=== PATIENT | female | born 2000 | race Caucasian/White ===

== ENCOUNTER 2022-08-23 17:47 | Observation (INO) | payer SELFPAY ==
[2022-08-23] VITALS (10 sets, daily range): BP systolic 104–125; BP diastolic 68–77; PULSE 57–81; RESP 16–24; TEMP 36.9; O2SAT 100
--- NOTE | ~2022-08-23 | CT_ITS ---
EXAMINATION: CT abdomen pelvis w con DATE: 08/23/2022 20:55 INDICATION: RLQ pain TECHNIQUE: Computed tomography (CT) of the abdomen and pelvis was performed with 100 mL Omnipaque-350 intravenous contrast. Automated exposure control and iterative reconstruction technique were employe d. The dose-length product was 314.58 mGy-cm. COMPARISON: None. FINDINGS: Lower thorax: Unremarkable Liver: Normal. Biliary/Gallbladder: Gallbladder is normal. No bile duct dilation. Pancreas: No mass or duct dilation. Spleen: Normal. Adrenals:No mass. Kidneys: No mass, stone, or hydronephrosis. GI tract: No small or large bowel dilation. Appendicoliths are present in mildly dilated, mostly flui d-filled appendix, with wall hyperemia. No wall breakdown. Mesentery/Peritoneum: No ascites, mass, or free air. Retroperitoneum: No mass. Pelvis: Pelvic organs are within normal limits. Soft Tissues: Soft tissues and body wall unremarkable. Bones: No acute osseous finding. IMPRESSION: Acute uncomplicated appendicitis. Reviewed, dictated and finalized at location K. RT PRE COOKER
[2022-08-23 18:03] LABS: Basophils Percent Auto 0.2 % (0.2-1.2); Eosinophils Absolute Auto 0.1 K/mm3 (0-0.3); Eosinophils Percent Auto 0.7 % (0-4.4); Hematocrit 40.1 % (37.0-47.0); Hemoglobin 13.1 g/dL (12.0-15.0); Immature Granulocyte Absolute 0.03 K/mm3 (0.00-0.031); Immature Granulocyte Percent A 0.3 % (0-0.5); Lymphocytes Percent Auto 19.5 % (18.3-44.2); Mean Corpuscular HGB Conc 32.7 g/dl (32-36); Mean Corpuscular Volume 94.8 fl (80-100); Monocytes Absolute Auto 0.8 K/mm3 (0.1-0.6); Monocytes Percent Auto 8.5 % (2.6-8.5); Neutrophils Absolute Auto 6.9 K/mm3 (1.3-6.7); Neutrophils Percent Auto 70.8 % (45.5-73.1); Platelet Count Result 287 k/mm3 (150-375); Red Blood Count 4.23 M/mm3 (4.2-5.4); Red Cell Distribution Width 12.4 % (11.5-14.5); White Blood Count 9.8 K/mm3 (4.5-10.0)
[2022-08-23 18:13] LABS: Add Urine Microscopic? NO; Appearance Urine Clear (Clear); Bilirubin Urine Negative (Negative); Blood Urine Negative (Negative); Color Urine Yellow (Yellow); Glucose Urine UA Negative (Negative); Ketones Urine Negative (Negative); Leukocyte Esterase Ur Negative LEU/UL (Negative); Nitrate Urine Negative (Negative); Protein Urine Negative (Negative); Urobilinogen Urine 0.2 mg/dL (<2.0); pH Urine 8.5 (5.0-9.0)
[2022-08-23 18:23] LABS: Alanine Aminotransferase 17 U/L (6-35); Albumin Level 4.3 g/dL (3.5-5.1); Alkaline Phosphatase 59 U/L (38-126); Anion Gap 6 mmol/L (8-16); Aspartate Amino Transferase 23 U/L (14-36); Blood Urea Nitrogen 10 mg/dL (7-17); Calcium 9.1 mg/dL (8.4-10.2); Carbon Dioxide 28 mmol/L (22-30); Chloride 104 mmol/L (98-107); Estimated CRCL calculation 95 ml/min; Estimated Glomerular Filt Rate > 60; Glucose 100 mg/dL (65-110); Lipase 44 U/L (23-300); Sodium 138 mmol/L (137-145)
--- NOTE | 2022-08-23 18:58 | ED.ABDPAIN ---
HPI - Abdominal Pain General Chief Complaint: Abdominal Pain Stated Complaint: abd pain Time Seen by Provider: 08/23/22 18:24 History of Present Illness HPI narrative: 22-year-old female nontoxic appearing with no medical problems, patient presents to the emergency room for evaluation of right lower quadrant pain that began last night. Denies any nausea vomiting or diarrhea. Patient states that she does suffer from constipation and takes magnesium and an additional stool softener on a regular basis. Denies back pain. Denies fevers. States pain is worse with ambulation. Describes the pain as a sharp stabbing pain. Review of Systems Review of Systems: CONSTITUTIONAL: Denies fever, chills, or sweats. EYES: Denies visual changes, redness, or discharge. ENT: Denies rhinorrhea, congestion, sore throat, or otalgia. CARDIOVASCULAR: Denies chest pain, palpitations, or edema. RESPIRATORY: Denies cough or dyspnea. GASTROINTESTINAL: Reports abdominal pain, nausea, constipation GENITOURINARY: Denies dysuria or hematuria. SKIN: Denies rash or itching. MUSCULOSKELETAL: Denies back pain, joint pain, or myalgia. NEUROLOGIC: Denies headache, numbness, dizziness, or weakness. PSYCHIATRIC: Denies anxiety or depression. Exam Narrative: GENERAL: Well-appearing, well-nourished, no physical limitations, and in no acute distress. HEAD: Normocephalic, atraumatic. EYES: Conjunctivae normal, PERRLA and EOMI. CHEST: Clear to auscultation. No respiratory distress. No wheezes rales or rhonchi. HEART: Regular rate and rhythm. No murmur heard. Normal peripheral pulses. ABDOMEN: Soft, right lower quadrant tenderness, nondistended, normal active bowel sounds. Negative heel strike. Positive psoas and obturator signs BACK: No CVA tenderness EXTREMITIES: Normal range of motion. No edema. No clubbing or cyanosis SKIN: Warm, dry, no rash. No noted wounds NEURO: No focal deficits. Alert and oriented x3. MAEW. CN's II-XI intact bilaterally, normal gait PSYCH: Cooperative. Normal mood and affect. Course Vital Signs Vital signs: Vital Signs Temperature 36.9 C 08/23/22 17:48 Pulse Rate 81 08/23/22 17:48 Respiratory Rate 18 08/23/22 17:48 Blood Pressure 125/72 08/23/22 17:48 Pulse Oximetry 100 08/23/22 17:48 Oxygen Delivery Room Air 08/23/22 17:48 Temperature 36.9 C 08/23/22 17:48 Pulse Rate 61 08/23/22 21:31 Respiratory Rate 19 08/23/22 21:31 Blood Pressure 113/77 08/23/22 21:31 Pulse Oximetry 100 08/23/22 21:16 Oxygen Delivery Room Air 08/23/22 17:48 MDM - Abdominal Pain Lab Data 08/23/22 17:55 08/23/22 17:55 Labs: Lab Results 08/23/22 08/23/22 08/23/22 Range/Units 17:55 17:55 18:06 WBC 9.8 (4.5-10.0) K/mm3 RBC 4.23 (4.2-5.4) M/mm3 Hgb 13.1 (12.0-15.0) g/dL Hct 40.1 (37.0-47.0) % MCV 94.8 (80-100) fl MCH 31.0 (26-34) pg MCHC 32.7 (32-36) g/dl RDW 12.4 (11.5-14.5) % Plt Count 287 (150-375) k/mm3 MPV 9.0 (7.4-10.4) fl Immature Gran % (Auto) 0.3 (0-0.5) % Neut % (Auto) 70.8 (45.5-73.1) % Lymph % (Auto) 19.5 (18.3-44.2) % [place] % (Auto) 8.5 (2.6-8.5) % Eos % (Auto) 0.7 (0-4.4) % Baso % (Auto) 0.2 (0.2-1.2) % Lymph # (Auto) 1.90 (0.9-3.2) K/mm3 [place] # (Auto) 0.8 H (0.1-0.6) K/mm3 Eos # (Auto) 0.1 (0-0.3) K/mm3 Baso # (Auto) 0.0 (0.0-0.1) K/mm3 Abs Immat Gran (auto) 0.03 (0.00-0.031) K/mm3 Absolute Neuts (auto) 6.9 H (1.3-6.7) K/mm3 Absolute Nucleated RBC 0.0 (0.0-0.012) K/mm3 Nucleated RBC % 0.0 (0.0-0.2) % Sodium 138 (137-145) mmol/L Potassium 4.0 (3.4-5.0) mmol/L Chloride 104 (98-107) mmol/L Carbon Dioxide 28 (22-30) mmol/L Anion Gap 6 L (8-16) mmol/L BUN 10 (7-17) mg/dL Creatinine 0.70 (0.7-1.0) mg/dL Estim Creat Clear Calc 95 ml/min Estimated GFR > 60 (59 - ) Glucose 100 (65-110) mg/dL Calcium 9.1 (8.
--- NOTE | 2022-08-23 19:32 | PC.NURSE ---
1909 Assumed pt care from Lindsey Campuzano RN
[2022-08-23 22:26] LABS: Influenza A QL RT-PCR Negative (Negative); Influenza B QL RT-PCR Negative (Negative); RSV RNA, RT-PCR Negative (Negative); SARS-CoV-2 RNA PCR Negative
[2022-08-23] MEDS: Please add drug allergy info to patient profile. 1 EACH XX (23:37)
[2022-08-23] MEDS: ONDANSETRON INJ 4 MG/2 ML VIAL IV PUSH (23:44)
[2022-08-23] MEDS: HYDROmorphone HCL INJ (*CRX) 1 MG/ML SYR 0.5 MG IV PUSH (23:44)
[2022-08-24] VITALS (14 sets, daily range): BP systolic 100–113; BP diastolic 51–74; PULSE 53–81; RESP 14–22; TEMP 36.6–37.4; O2SAT 96–100; BMI 23.4
[2022-08-24 00:01] LABS: Lactic Acid Reflex 1.7 mmol/L (0.7-2.0)
[2022-08-24] MEDS: HYDROmorphone HCL INJ (*CRX) 1 MG/ML SYR 0.5 MG IV PUSH (08:01)
--- NOTE | 2022-08-24 08:04 | PM.IMHP ---
H&P: HPI History of Present Illness Date/Time: 08/24/22 08:04 Chief Complaint: abd pain Narrative: Patient is a 22-year-old woman with complaints of right lower quadrant abdominal pain that started night before last. Pain is sharp and stabbing. It is worse with ambulation. She has a history of chronic constipation. She came to the emergency room last night. She had right lower quadrant tenderness and a positive psoas sign. CT scan showed acute appendicitis with appendicolith. Patient has been admitted and started on IV antibiotics. Plan to proceed with laparoscopic appendectomy today. Review of Systems Review of Systems: All systems reviewed & are unremarkable except as noted in HPI and below (HPI and those items noted below) Constitutional: Constitutional: Denies chills and Denies fever(s) Cardiovascular: Cardiovascular: Denies chest pain, Denies diaphoresis, Denies dyspnea and Denies paroxysmal nocturnal dyspnea Respiratory: Respiratory: Denies chest congestion, Denies cough and Denies dyspnea Integumentary/Breasts: Skin/Breast: Denies lesions and Denies rash PMFSH Social History Social History Lack of Transportation: No Lack of Food: Never True Current Housing: I Have Housing Concerned About Future Housing: No Difficulty Paying Gas/Electric Bills: No Difficulty Paying for Meds: No Currently Unemployed: No Education: High School Diploma/GED Difficulty w/ Childcare or Family Care: No Spiritual care concerns: No Meds Home Medications and Allergies Home Medications Medication Instructions Recorded Confirmed Type norgestimate-ethinyl estradiol 1 tablet PO DAILY 08/23/22 08/24/22 History 0.18 mg/0.215mg/0.25mg-35 mcg(28)tablet (Tri-Sprintec (28)) Rueda Milk of Magnesia 1,000 mg PO DAILY 08/24/22 08/24/22 History bisacodyl 5 mg tablet,delayed 10 mg PO DAILY 08/24/22 08/24/22 History release (Dulcolax (bisacodyl)) Allergies Allergy/AdvReac Type Severity Reaction Status Date / Time No Known Allergies Allergy Verified 08/23/22 22:46 Vital Signs Vital Signs - 24 hr 08/23/22 17:48 08/23/22 18:46 01/22/23 20:16 Temperature 36.9 C Pulse Rate 81 70 67 Respiratory Rate 18 16 19 Blood Pressure 125/72 112/73 104/71 Pulse Oximetry 100 100 100 Oxygen Delivery Room Air 08/23/22 20:31 08/23/22 20:56 08/23/22 21:01 Temperature Pulse Rate 70 62 69 Respiratory Rate 20 24 H 17 Blood Pressure 109/76 114/75 114/70 Pulse Oximetry 100 100 100 Oxygen Delivery 08/23/22 21:16 08/23/22 21:31 08/23/22 21:46 Temperature Pulse Rate 57 L 61 63 Respiratory Rate 17 19 16 Blood Pressure 108/70 113/77 113/74 Pulse Oximetry 100 Oxygen Delivery 08/23/22 23:53 08/24/22 00:01 08/24/22 01:27 Temperature 36.7 C Pulse Rate 73 72 60 Respiratory Rate 16 16 20 Blood Pressure 107/68 106/63 113/65 Pulse Oximetry 100 97 100 Oxygen Delivery 08/24/22 04:00 Temperature 36.6 C Pulse Rate 55 L Respiratory Rate 20 Blood Pressure 107/60 Pulse Oximetry 99 Oxygen Delivery Exam Const: General: comfortable, no acute distress, alert and awake HENMT: Head: normocephalic and atraumatic Mouth: Yes Normal oral and palatal mucosa present Eyes: Conjunctivae: conjunctivae normal Pupils: Equal, round and reactive pupils present EOM: EOMs intact bilaterally Neck: Neck: normal visual inspection, no lymphadenopathy and nontender Resp: Effort & Inspection: normal respiratory effort Auscultation: clear to auscultation bilaterally Cardio: Rate: regular rate Rhythm: regular rhythm Heart sounds: no gallops, no murmurs and no rubs GI: Inspection: non-distended, scaphoid and no scars GI Palp: Yes Soft to palpation, Yes Tenderness to palpation present (GI) (Right lower quadrant with guarding), Yes Guarding due to palpation present (GI), No Hepatomegaly present, No Splenomegaly present and No Palpable mass
--- NOTE | 2022-08-24 12:47 | WPDHPUPDATE1 ---
History and Physical Update Update Date/Time: 08/24/22 12:47 History and Physical has been reviewed, including an updated exam of the patient. There are NO changes in the patient's condition. Risks, benefits, and alternatives have been discussed and questions answered. Patient agrees to proceed with procedure.
[2022-08-24] MEDS: LACTATED RINGERS 1,000 ML 30 ML IV CONT ×2 (13:15→15:20)
[2022-08-24] MEDS: ceFAZolin 2 GM/D5W 50 ML 2 GM/50 ML BAG IVPB (14:24)
--- NOTE | 2022-08-24 14:29 | WPDANESEPPF ---
Anes - Initial Pre Proc Eval Procedure: Operation Date: 08/24/22 14:30 Proposed Procedures p Laparoscopic Appendectomy - Charlie Diaz MD Date/Time: 08/24/22 14:29 Surgeon: Charlie Diaz MD Pre Op Diagnosis: APPENDICITIS Patient Data Age: 22 Gender: F Height: 1.65 m Weight: 63.9 kg Last Vital Signs Temp 36.8 C 08/24/22 13:24 Pulse 64 08/24/22 13:24 Resp 14 08/24/22 13:24 BP 102/61 08/24/22 13:24 Pulse Ox 100 08/24/22 13:24 O2 Del Method Room Air 08/24/22 13:24 Allergies Allergy/AdvReac Type Severity Reaction Status Date / Time No Known Allergies Allergy Verified 08/23/22 22:46 Home Medications Medication Instructions Recorded Confirmed Type norgestimate-ethinyl estradiol 1 tablet PO DAILY 08/23/22 08/24/22 History 0.18 mg/0.215mg/0.25mg-35 mcg(28)tablet (Tri-Sprintec (28)) Rueda Milk of Magnesia 1,000 mg PO DAILY 08/24/22 08/24/22 History bisacodyl 5 mg tablet,delayed 10 mg PO DAILY 08/24/22 08/24/22 History release (Dulcolax (bisacodyl)) Laboratory Tests 08/23/22 08/23/22 08/23/22 17:55 17:55 18:06 WBC 9.8 K/mm3 K/mm3 (4.5-10.0) RBC 4.23 M/mm3 M/mm3 (4.2-5.4) Hgb 13.1 g/dL g/dL (12.0-15.0) Hct 40.1 % % (37.0-47.0) MCV 94.8 fl fl (80-100) MCH 31.0 pg pg (26-34) MCHC 32.7 g/dl g/dl (32-36) RDW 12.4 % % (11.5-14.5) Plt Count 287 k/mm3 k/mm3 (150-375) MPV 9.0 fl fl (7.4-10.4) Immature Gran % (Auto) 0.3 % % (0-0.5) Neut % (Auto) 70.8 % % (45.5-73.1) Lymph % (Auto) 19.5 % % (18.3-44.2) [place] % (Auto) 8.5 % % (2.6-8.5) Eos % (Auto) 0.7 % % (0-4.4) Baso % (Auto) 0.2 % % (0.2-1.2) Lymph # (Auto) 1.90 K/mm3 K/mm3 (0.9-3.2) [place] # (Auto) 0.8 K/mm3 H K/mm3 (0.1-0.6) Eos # (Auto) 0.1 K/mm3 K/mm3 (0-0.3) Baso # (Auto) 0.0 K/mm3 K/mm3 (0.0-0.1) Abs Immat Gran (auto) 0.03 K/mm3 K/mm3 (0.00-0.031) Absolute Neuts (auto) 6.9 K/mm3 H K/mm3 (1.3-6.7) Absolute Nucleated RBC 0.0 K/mm3 K/mm3 (0.0-0.012) Nucleated RBC % 0.0 % % (0.0-0.2) Sodium 138 mmol/L mmol/L (137-145) Potassium 4.0 mmol/L mmol/L (3.4-5.0) Chloride 104 mmol/L mmol/L (98-107) Carbon Dioxide 28 mmol/L mmol/L (22-30) Anion Gap 6 mmol/L L mmol/L (8-16) BUN 10 mg/dL mg/dL (7-17) Creatinine 0.70 mg/dL mg/dL (0.7-1.0) Estim Creat Clear Calc 95 ml/min ml/min Estimated GFR > 60 (59 - ) Glucose 100 mg/dL mg/dL (65-110) Lactic Acid Calcium 9.1 mg/dL mg/dL (8.4-10.2) Total Bilirubin 1.0 mg/dL mg/dL (0.2-1.3) AST 23 U/L U/L (14-36) ALT 17 U/L U/L (6-35) Alkaline Phosphatase 59 U/L U/L (38-126) Total Protein 8.0 g/dL g/dL (6.3-8.2) Albumin 4.3 g/dL g/dL (3.5-5.1) Lipase 44 U/L U/L (23-300) Urine Color Yellow (Yellow) Urine Appearance Clear (Clear) Urine pH 8.5 (5.0-9.0) Ur Specific [place] 1.020 (1.001-1.035) Urine Protein Negative mg/dL mg/dL (Negative) Urine Glucose (UA) Negative mg/dL mg/dL (Negative) Urine Ketones Negative mg/dL mg/dL (Negative) Ur Blood (Man) Negative (Negative) Urine Nitrate Negative (Negative) Urine Bilirubin Negative (Negative) Urine Urobilinogen 0.2 mg/dL mg/dL (<2.0) Leukocyte Esterase Rfl Negative MARIKA/UL MARIKA/UL (Negative) Influenza A (RT-PCR) Influenza B (RT-PCR) RSV (RT-PCR) SARS-CoV-2 RNA (RT-PCR) 08/23/22 08/23/22 21:45 23:34 WBC RBC Hgb Hct
[2022-08-24] MEDS: BUPIVACAINE/EPINEPHRINE 0.5% 30 ML VIAL INFILTRATE (14:49)
--- NOTE | 2022-08-24 15:25 | W.PM.PROC2 ---
Procedure Note - Detailed Date of Procedure 08/24/22 Pre-op Diagnosis APPENDICITIS Post-op Diagnosis Same Procedure Performed Laparoscopic appendectomy Surgeon Charlie Diaz MD Cold Roll Operator Mu GANDHI Anesthesia General and Local (0.5% Marcaine with epinephrine) Indications Patient came to the emergency room last night with right lower quadrant pain that started the night before. She had tenderness in the right lower quadrant and CT scan showed acute appendicitis with appendicoliths. She is taken to surgery now for laparoscopic appendectomy. Findings Acute appendicitis but no evident of ruptured appendix. Description of Procedure Patient was taken to surgery and induced into general anesthesia. The abdomen is prepped and draped. Left-sided trocars were placed using Riiid optical trocars and a 5 mm camera. After adequate insufflation, patient was placed in Trendelenburg with the right-side elevated. There were some inflammatory adhesions to the appendix. These were taken down without difficulty. The appendix was then somewhat twisted upon itself and these inflammatory adhesions were broken up and the appendix was in its more normal configuration. It was obviously inflamed and the inflammation was limited to the distal 2/3 of the appendix. The mesoappendix was dissected and the appendiceal artery was dissected. The appendiceal artery was then thoroughly cauterized and divided. The rest of the mesoappendix was dissected and the base of the appendix was skeletonized. The appendix was then ligated at its base with a Vicryl endoloop. It was amputated just above the ligature and the mucosa of the appendiceal stump was cauterized. The appendix was then placed immediately in an Endo-Catch bag. It was removed through the 10 11 left lower quadrant trocar site. The trocar was then replaced. We reviewed the areas of dissection and the appendiceal stump. All looked quite good. We then evacuated CO2 and removed the trocar sleeves. Skin wounds were closed with subcuticular 4-0 Monocryl skin suture. The wounds were dressed with Exofin surgical adhesive. Patient was awakened and taken to recovery in good condition. Sponge needle counts were correct x2. Estimated Blood Loss -5 Drains No Packing No Pathology Yes (Appendix) Complications No immediate complications Condition Stable Disposition PACU [facility] Billing Surgery - Charge Forward: Surgery Billing (Laparoscopic appendectomy)
--- NOTE | 2022-08-24 15:25 | PM.DS ---
DS: Admitting Diagnosis Discharge Date 08/24/2022 Admitting Diagnosis Acute appendicitis DS: Discharge Diagnosis Discharge Diagnosis (1) Acute appendicitis: Code(s): K35.80 - Unspecified acute appendicitis Status: Acute (2) Chronic constipation: Code(s): K59.09 - Other constipation Status: Chronic DS: Summary Hospital Course Hospital Course: Patient came to the emergency room last night with complaints of right lower quadrant abdominal pain that started the night before. Although her white blood cell count was in the normal range, she had right lower quadrant tenderness with guarding and CT scan showed acute appendicitis with appendicoliths. She was taken to surgery on 08/24/2022 and laparoscopic appendectomy was performed. The appendicitis was primarily in the distal 2/3 of the appendix. There was no evidence of ruptured appendix. Patient did well with the surgery in stable to be discharged later in the evening. Status at Discharge Functional status at discharge: independent ambulation Overall status at discharge: patient is progressing back to baseline Time Spent with Patient Time attestation: Total time spent providing and/or coordinating discharge services: Time spent: Less than 30 minutes DS: Data Data Completed and Pending Labs on day of discharge: Labs from last 24 hours 08/23/22 08/23/22 08/23/22 23:34 21:45 18:06 WBC RBC Hgb Hct MCV MCH MCHC RDW Plt Count MPV Immature Gran % (Auto) Neut % (Auto) Lymph % (Auto) Hand % (Auto) Eos % (Auto) Baso % (Auto) Lymph # (Auto) Hand # (Auto) Eos # (Auto) Baso # (Auto) Abs Immat Gran (auto) Absolute Neuts (auto) Absolute Nucleated RBC Nucleated RBC % Sodium Potassium Chloride Carbon Dioxide Anion Gap BUN Creatinine Estim Creat Clear Calc Estimated GFR Glucose Lactic Acid 1.7 Calcium Total Bilirubin AST ALT Alkaline Phosphatase Total Protein Albumin Lipase Urine Color Yellow Urine Appearance Clear Urine pH 8.5 Ur Specific [place] 1.020 Urine Protein Negative Urine Glucose (UA) Negative Urine Ketones Negative Ur Blood (Man) Negative Urine Nitrate Negative Urine Bilirubin Negative Urine Urobilinogen 0.2 Leukocyte Esterase Rfl Negative Influenza A (RT-PCR) Negative Influenza B (RT-PCR) Negative RSV (RT-PCR) Negative SARS-CoV-2 RNA (RT-PCR) Negative 08/23/22 08/23/22 17:55 17:55 WBC 9.8 RBC 4.23 Hgb 13.1 Hct 40.1 MCV 94.8 MCH 31.0 MCHC 32.7 RDW 12.4 Plt Count 287 MPV 9.0 Immature Gran % (Auto) 0.3 Neut % (Auto) 70.8 Lymph % (Auto) 19.5 Hand % (Auto) 8.5 Eos % (Auto) 0.7 Baso % (Auto) 0.2 Lymph # (Auto) 1.90 Hand # (Auto) 0.8 H Eos # (Auto) 0.1 Baso # (Auto) 0.0 Abs Immat Gran (auto) 0.03 Absolute Neuts (auto) 6.9 H Absolute Nucleated RBC 0.0 Nucleated RBC % 0.0 Sodium 138 Potassium 4.0 Chloride 104 Carbon Dioxide 28 Anion Gap 6 L BUN 10 Creatinine 0.70 Estim Creat Clear Calc 95 Estimated GFR > 60 Glucose 100 Lactic Acid Calcium 9.1 Total Bilirubin 1.0 AST 23 ALT 17 Alkaline Phosphatase 59 Total Protein 8.0 Albumin 4.3 Lipase 44 Urine Color Urine Appearance Urine pH Ur Specific [place] Urine Protein Urine Glucose (UA) Urine Ketones Ur Blood (Man) Urine Nitrate Urine Bilirubin Urine Urobilinogen Leukocyte Esterase Rfl Influenza A (RT-PCR) Influenza B (RT-PCR) RSV (RT-PCR) SARS-CoV-2 RNA (RT-PCR) Discharge Plan Discharge Attending physician on discharge: Charlie Diaz Consulting providers: Jorge Lemos Discharging Clinician: Charlie Diaz Anticipated Discharge Date/Time: 08/24/22 20:00 Patient Disposition: Home, Self-Care Activity: may shower and as tolerat
== END 2022-08-24 20:20 | disposition home or self-care (01) ==
LOC: ANHED 21:36 → ANH3MEDSUR 22:34
PROVIDERS: Emergency Medicine; Admitting Provider Surgery; Emergency Provider Nurse Practitioner Family; Visit Provider Surgery
PROC: 0DTJ4ZZ Resection of Appendix, Percutaneous Endoscopic Approach (ICD-10-PCS; CPT 44970; principal; 2022-08-24 14:30)
DX: K35.80 Unspecified acute appendicitis (principal); K59.09 Other constipation; Z20.822 Contact with and (suspected) exposure to COVID-19
CPT/HCPCS: 44970; 36415; 74177; 80053; 81003; 81025; 83605; 83690; 85025; 87637; 88304; 96361; 96365; 96374; 96375; 99285; G0378; G0379; J0690; J1100; J1170; J1885; J2250; J2405; J2543; J2704; J2710; J3010; J7120; Q9967